=== PATIENT | female | born 1985 | race Caucasian/White ===

== ENCOUNTER 2018-10-20 21:54 | Emergency (ER) | payer OTHER ==
[~2018-10-20] VITALS: Ht 165.1 cm; Wt 81.8 kg
[~2018-10-20 21:54] MED LIST: FLUO20CA22 PO; LISI-313 PO; METF500T3 PO
[2018-10-20] MEDS ORDERED: LORAZEPAM 2 MG INJ ONE (22:01)
[2018-10-20] MEDS ORDERED: SOD CHLORIDE 0.9% 1,000 ML IV STA (22:04)
[2018-10-20] MEDS ORDERED: ONDANSETRON 4 MG INJ IV STA (22:04)
[2018-10-20 22:07] VITALS: Ht 165.1 cm; Wt 81.8 kg
[2018-10-20] MEDS ORDERED: LORAZEPAM 2 MG INJ IV ONE (22:30)
[2018-10-20] MEDS ORDERED: LEVETIRACETAM 1000 MG (PMX) 100 ML IVPB ONE (22:30)
--- NOTE | 2018-10-20 22:51 | ERD ---
ER Documentation Chief Complaint Chief Complaint Seizure HPI This is a 33-year-old woman brought in by EMS for possible seizure activity, EMS found her on the floor with eyes closed and minimally responsive. 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 Patient was transported here without further complications. Patient denies fevers or chills, no chest pain or shortness of breath, no headache or blurry vision. She does not know what antiepileptic medications she uses. ROS All systems reviewed and are negative except as per history of present illness. Medications Home Meds Active Scripts Naproxen* (Naprosyn*) 500 Mg Tablet, 500 MG PO BID PRN for PAIN AND/OR INFLAMMATION, #30 TAB Prov:MIKA MANTILLA MD 10/21/18 Reported Medications Metformin* (Glucophage* XR) 500 Mg Tab.sr.24h, 500 MG PO BID 11/23/10 Fluoxetine Hcl* (Fluoxetine Hcl*) 20 Mg Capsule, 20 MG PO DAILY 11/23/10 Lisinopril* (Lisinopril*) 5 Mg Tablet, 5 MG PO DAILY 11/23/10 Allergies Allergies: Coded Allergies: No Known Drug Allergies (Verified Allergy, Unknown, 10/21/18) PMhx/Soc Obesity, hypertension, seizures vs pseudoseizures, depression History of Surgery: Yes (C SECTIONS) Anesthesia Reaction: No Hx Neurological Disorder: Yes (Hx of Seizures) Hx Respiratory Disorders: No Hx Cardiac Disorders: No Hx Psychiatric Problems: No Hx Miscellaneous Medical Probl: No Hx Alcohol Use: No Hx Substance Use: No Hx Tobacco Use: No Smoking Status: Unknown if ever smoked FmHx Family History: No diabetes Physical Exam Vitals Vital Signs Date Temp Pulse Resp B/P (MAP) Pulse Ox O2 O2 Flow FiO2 Time Delivery Rate 10/20/18 98.7 20 168/82 100 Non 10.0 22:07 (110) Rebreather 10/20/18 98.7 98 24 168/82 100 22:07 (110) Physical Exam Const: Well-developed well-nourished woman appears anxious, nontoxic in appearance, afebrile Resp: Clear to auscultation bilaterally Cardio: Regular rate and rhythm, no murmurs Back: No midline or flank tenderness Ext: No cyanosis, or edema, calves symmetrical, distal pulses equal bilateral Neur: Awake and alert x3, no focal deficits or facial asymmetry, pupils equal round reactive to light Psych: Anxious appearing Result Diagram: 10/20/18 6819 10/20/18 2214 Results 24 hrs Laboratory Tests Test 10/20/18 22:14 10/20/18 22:50 10/20/18 23:59 10/21/18 01:19 Sodium Level 135 mmol/L Potassium Level 4.1 mmol/L Chloride Level 100 mmol/L Carbon Dioxide 22 mmol/L Level Anion Gap 13 Blood Urea 11 mg/dl Nitrogen Creatinine 0.45 mg/dl Est Glomerular > 60 mL/min Filtrat Rate mL/min Glucose Level 488 mg/dl Calcium Level 9.7 mg/dl Total Bilirubin 0.4 mg/dl Direct Bilirubin 0.00 mg/dl Indirect 0.4 mg/dl Bilirubin Aspartate Amino 31 IU/L Transf (AST/SGOT ) Alanine 24 IU/L Aminotransferase (ALT/SGPT) Alkaline 185 IU/L Phosphatase Troponin I < 0.012 ng/ml Total Protein 7.3 g/dl Albumin 4.2 g/dl Globulin 3.10 g/dl Albumin/Globulin 1.35 Ratio Lipase 133 U/L Urine Color STRAW Urine Clarity CLEAR Urine pH 6.0 Urine Specific 1.026 Polaris Urine Ketones NEGATIVE mg/dL Urine Nitrite NEGATIVE mg/dL Urine Bilirubin NEGATIVE mg/dL Urine NEGATIVE mg/dL Urobilinogen Urine Leukocyte NEGATIVE Piedad/ul Esterase Urine Hemoglobin NEGATIVE mg/dL Urine Glucose 3+ mg/dL Urine Total NEGATIVE mg/dl Protein White Blood 6.3 10^3/ul Count Red Blood Count 4.69 10^6/ul Hemoglobin 12.9 g/dl Hematocrit 39.7 % Mean Corpuscular 84.6 fl Volume Mean Corpuscular 27.5 pg Hemoglobin Mean Corpuscular 32.5 g/dl Hemoglobin Jesika nt Red Cell 13.8 % Distribution Width Platelet Count 275 10^3/UL Mean Platelet 11.9 fl Volume Immature 0.200 % Granulocytes % Neutrophils % 42.6 % Lymphocytes % 49.1 % Monocytes % 5.1 % Eosinophils % 2.4 % Basophils % 0.6 % Nucleated Red 0.0 /100WBC Blood Cells % Immature 0.010 10^3/ul Granulocytes # Neutrophils # 2.7 10^3/ul Lymphocytes # 3.1 10^3/ul Monocytes # 0.3 10^3/ul Eosinophils # 0.2 10^3/ul Basophils # 0.0 10^3/ul Nucleated Red 0.0 10^3/ul Blood Cells # Bedside Glucose 316 mg/dL Current Medications Medications Dose Sig/Aexl Start Time Status Last (Trade) Ordered Route PRN Stop Time Admin Dose Reason Admin 100 ml @ ONCE ONCE 10/20/18 DC 10/20/18 Levetiracetam 400 mls/hr IVPB 22:30 22:29 10/20/18 22:44 Lorazepam 1 mg ONCE ONCE 10/20/18 DC 10/20/18 (Ativan) IV 22:30 22:49 10/20/18 22:31 Sodium 1,000 ml @ Q1H STAT 10/20/18 DC 10/20/18 Chloride 1,000 mls/hr IV 22:04 22:30 10/20/18 23:03 Ondansetron 4 mg ONCE STAT 10/20/18 DC 10/20/18 HCl (Zofran IV 22:04 23:07 Inj) 10/20/18 22:06 Insulin 14 unit ONCE ONCE 10/21/18 DC Human SC 00:30 Lispro 10/21/18 00:31 (Humalog) Diagnostic 1 ea 2 HRS AFTER 10/21/18 DC Test (Pha) HUMALOG ONCE 00:30 (Accu-Chek) XX 10/21/18 00:31 Lactated 1,000 ml @ Q1H STAT 10/21/18 DC Ringer's 1,000 mls/hr IV 00:02 10/21/18 01:01 Procedures/MDM IV line was established patient was placed on radiation monitor rhythm strip revealed a sinus rhythm at about 90 bpm with upright P and T waves. Patient was afebrile I administered 1 L normal saline IV, 1 mg IV lorazepam for possible seizure activity, Zofran 4 mg IV. Patient had another episode of movement in the emergency department, her episodic upper and lower extremity jerking appears voluntary and I am not sure if this is actual actual seizure activity I administered Keppra 1 g IV. EKG performed, read by me: 91 bpm, normal sinus rhythm, normal axis, no acute ST segment changes, narrow QRS complex, with good R-wave progression in precordial leads. CBC was normal, electrolytes are normal blood sugar elevated at 488, liver function test normal, troponin negative, test negative, urinalysis negative for infection I administered lispro insulin subcutaneous injection 14 units and blood sugar was later repeated at 316. Patient has no laboratory evidence or physical exam findings suggestive of DKA. Patient's mental status is at baseline, she has had no other seizure activity while in the ER and looks well. Differential diagnoses considered, included but not limited to acute coronary syndrome, pulmonary embolism, aortic dissection, abdominal aortic aneurysm, sepsis, stroke, meningitis, encephalitis, pneumonia, appendicitis, cholecystitis, bowel obstruction, pyelonephritis, nephrolithiasis, cystitis, as well as metabolic, hematologic, and electrolyte abnormalities. As well as abscess, cellulitis, fractures, and dislocations. Patient feels much better at this time, and vital signs are normal, symptoms have improved. I did give strict instructions to return to the ED if symptoms continue or worsen, patient will otherwise follow-up with primary care physician. Patient understood instructions and agreed to plan. Disclaimer: Inadvertent spelling and grammatical errors are likely due to EHR/dictation software use and do not reflect on the overall quality of patient care. Also, please note that the electronic time recorded on this note does not necessarily reflect the actual time of the patient encounter. Departure Diagnosis: Primary Impression: Seizure disorder Additional Impression: Acute hyperglycemia Condition: MIKA Navas MD Oct 20, 2018 22:51
[2018-10-21] MEDS ORDERED: LACTATED RINGER'S 1,000 ML IV STA (00:02)
[2018-10-21] MEDS ORDERED: ACCU-CHEK XX ONE (00:30)
[2018-10-21] MEDS ORDERED: INSULIN LISPRO 100 UNIT/ML VIAL SC ONE (00:30)
[2018-10-21] MEDS ORDERED: NAPR-985 PO (01:23)
[2018-10-21 02:32] VITALS: BP 134/78; PULSE 84; RESP 17
[2018-10-21] MEDS ORDERED: INSU100V3 SQ (02:59)
[2018-10-21] MEDS ORDERED: MAGN400T27 PO (02:59)
[2018-10-21] MEDS ORDERED: NPH,100V SC (02:59)
[2018-10-21] MEDS ORDERED: FOLI-49 PO (02:59)
[2018-10-21] MEDS ORDERED: METF-849 PO (02:59)
[2018-10-21] MEDS ORDERED: CITA40TA6 PO (03:27)
[2018-10-21] MEDS ORDERED: NAPR-688 PO (03:27)
[2018-10-21] MEDS ORDERED: LEVE10006 PO (03:27)
[2018-10-21] MEDS ORDERED: IBUP-1542 PO (03:27)
== END 2018-10-21 02:37 | disposition home or self-care (01) ==
LOC: E/R 21:54
DX: G40.909 Epilepsy, unspecified, not intractable, without status epilepticus (principal); I10 Essential (primary) hypertension; E66.9 Obesity, unspecified; E11.65 Type 2 diabetes mellitus with hyperglycemia; Z68.30 Body mass index [BMI] 30.0-30.9, adult; Z79.84 Long term (current) use of oral hypoglycemic drugs
CPT/HCPCS: 36415; 71045; 80053; 81003; 82962; 83690; 84484; 84703; 85025; 93005; 96372; 96374; 96375; J1815; J1953; J2060; J2405; J7030; J7120; Z7502